=== PATIENT | male | born 1955 | race Caucasian/White ===

== ENCOUNTER → 2022-01-21 | Outpatient (CLI) | payer BC ==
--- NOTE | 2022-01-21 09:09 | CT ---
EXAMINATION TYPE: CT sinus wo con DATE OF EXAM: 01/21/2022 COMPARISON: None HISTORY: 66-year-old male J32.9, Chronic Sinusitis CT DLP: 622.3 mGycm Automated exposure control for dose reduction was used. TECHNIQUE: Noncontrast axial views of the paranasal sinuses were obtained. Coronal and sagittal refor matted images were obtained from the axial views for evaluation of nasal cavity, osteomeatal complex and skull base integrity. FINDINGS: PARANASAL SINUSES: There is mild mucosal thickening scattered throughout the bilateral ethmoid air cells and maxillary s inuses. Mucosal thickening extends to the region of the bilateral maxillary infundibula. The frontal and sphenoid sinuses are well pneumatized. There is no air-fluid level. Reactive graciela- osteogenesis is not seen. There is no destruction of the osseous hernandez of the paranasal sinuses. THE NASAL CAVITY: The osteomeatal complexes are patent. Pronounced rightward nasal septal deviation. The imaged brain, sella, skull base and orbits are normal in appearance. Mastoid air cells and middle ear cavities are well pneumatized. Reformatted images confirm above findings. IMPRESSION: Mild chronic ethmoid and bilateral maxillary sinus disease. Pronounced rightward nasal septal deviati on.
== END | disposition home or self-care (01) ==
LOC: RADCTMAIN 06:51
PROVIDERS: ATTEND Otolaryngology
DX: J32.0 Chronic maxillary sinusitis (principal); J34.2 Deviated nasal septum
CPT/HCPCS: 70486